=== PATIENT | female | born 1985 | race Caucasian/White ===

== ENCOUNTER 2017-12-19 05:03 | Inpatient (IN) | payer OTHER ==
[2017-12-19 07:19] LABS: MEAN CORPUSCULAR HEMOGLOBIN 31.1 pg (27.0-33.0); MEAN CORPUSCULAR VOLUME 88.9 fl (80.0-96.0); PLATELET COUNT, AUTOMATED 135 10^3/uL (150-450); RED CELL DISTRIBUTION WIDTH 13.2 % (11.5-14.5)
[2017-12-19] MEDS ORDERED: LR 1,000 ML IV (07:42)
[2017-12-19] MEDS: LACTATED RINGER'S 1000 ML IV (07:42)
[2017-12-19] MEDS ORDERED: TERBUTALINE SULFATE 1 MG/ML VIAL (J3105) As Ordered (07:47)
[2017-12-19] MEDS: TERBUTALINE SULFATE 1 MG/ML VIAL (J3105) SC (07:51)
[2017-12-19] MEDS: DOCUSATE SODIUM 100 MG CAP PO ×2 (09:00→21:04)
[2017-12-19] MEDS ORDERED: OXYTOCIN 30 UNITS IN 0.9% NaCl 500ML IV BAG (J2590) As Ordered (09:19)
[2017-12-19] MEDS: OXYTOCIN DRIP 30 UNITS in APPROPRIATE DILUENT 1 EA IV (09:55)
[2017-12-19] MEDS ORDERED: RHOGAM 300 MCG (1500 IU) INJ (J2790) IM (10:00)
[2017-12-19] MEDS ORDERED: MEASLES,MUMPS,RUBELLA VACCINE INJ (MMR-II) (90707) SC (10:00)
[2017-12-19] MEDS ORDERED: ONDANSETRON 4MG/2ML VIAL (J2405) IV (10:00)
[2017-12-19] MEDS ORDERED: DIBUCAINE 1% OINTMENT 30GM TOP (10:00)
[2017-12-19] MEDS: LIDOCAINE 1% MDV 20ML VIAL INFIL (12:15)
[2017-12-19] MEDS: METHYLERGONOVINE MALEATE 0.2 MG TAB PO ×2 (12:16→18:01)
[2017-12-19] MEDS: IBUPROFEN 800 MG TAB PO ×2 (12:54→21:03)
[2017-12-20] MEDS: METHYLERGONOVINE MALEATE 0.2 MG TAB PO ×2 (00:09→05:34)
[2017-12-20] MEDS: ACETAMINOPHEN TAB 650MG DOSE (2X325MG) PO (04:50)
[2017-12-20 05:05] LABS: HEMATOCRIT 36.5 % (36.0-47.0); HEMOGLOBIN 12.1 g/dl (12.0-16.0); MEAN CORPUSCULAR HEMOGLOBIN 30.9 pg (27.0-33.0); MEAN CORPUSCULAR HGB CONC 33.2 g/dl (32.0-36.5); MEAN CORPUSCULAR VOLUME 93.1 fl (80.0-96.0); PLATELET COUNT, AUTOMATED 129 10^3/uL (150-450); RED BLOOD COUNT 3.92 10^6/uL (4.00-5.40); RED CELL DISTRIBUTION WIDTH 13.5 % (11.5-14.5); WHITE BLOOD COUNT 11.8 10^3/uL (4.0-10.0)
[2017-12-20] MEDS: DOCUSATE SODIUM 100 MG CAP PO (08:31)
[2017-12-20] MEDS: PRENATAL VITAMINS CHEWABLE TABLET PO (08:31)
[2017-12-20] MEDS: IBUPROFEN 800 MG TAB PO ×2 (08:31→18:26)
== END 2017-12-20 19:05 | disposition home or self-care (01) | DRG 775 ==
LOC: M LDO 05:03 → M LDI 06:44 → M OBS 12:38
PROVIDERS: Student in an Organized Health Care Education/Training Program
PROC: 10E0XZZ Delivery of Products of Conception, External Approach (ICD-10-PCS; principal; 2017-12-19)
PROC: 0KQM0ZZ Repair Perineum Muscle, Open Approach (ICD-10-PCS; 2017-12-19)
DX: O48.0 Post-term pregnancy (principal); Z37.0 Single live birth; Z3A.40 40 weeks gestation of pregnancy; O69.82X0 Labor and delivery complicated by other cord entanglement, without compression, not applicable or unspecified; O70.1 Second degree perineal laceration during delivery; O66.0 Obstructed labor due to shoulder dystocia; O36.63X0 Maternal care for excessive fetal growth, third trimester, not applicable or unspecified

== ENCOUNTER → 2018-12-29 | Outpatient (CLI) | payer OTHER ==
[~2018-12-29] MED LIST: COLA100C5 PO; MOTR200T44 PO; PRENTAB55 PO; TYLE325T5 PO
[2018-12-29 14:22] LABS: CHLAMYDIA DNA AMPLIFICATION NEGATIVE (NEGATIVE); GC DNA AMPLIFICATION NEGATIVE (NEGATIVE)
[2018-12-30 10:55] LABS: HEPATITIS A ANTIBODY IGM NEGATIVE (NEGATIVE); HEPATITIS B CORE ANTIBODY IGM NEGATIVE (NEGATIVE); HEPATITIS B SURFACE ANTIGEN NEGATIVE (NEGATIVE); HEPATITIS C VIRUS ABY INDEX 0.1 INDEX (<0.8); HIV 1&2 SCREEN CENTAUR NEGATIVE (NEGATIVE)
== END ==
LOC: M WUC 09:10
PROVIDERS: ATTEND Physician Assistant
DX: Z20.2 Contact with and (suspected) exposure to infections with a predominantly sexual mode of transmission (principal)

== ENCOUNTER 2019-02-10 15:55 | Emergency (ER) | payer OTHER ==
[~2019-02-10] VITALS: Ht 167.6 cm; Wt 91.4 kg
[2019-02-10 16:39] LABS: BASO % 0.3 % (0.0-1.0); EOS # 0.2 10^3/uL (0.0-0.50); EOS % 1.1 % (0.0-3.0); HEMATOCRIT 44.6 % (36.0-47.0); LYMPH # 1.9 10^3/uL (1.5-4.5); LYMPH % 13.5 % (24.0-44.0); MEAN CORPUSCULAR HGB CONC 33.6 g/dl (32.0-36.5); MEAN CORPUSCULAR VOLUME 95.1 fl (80.0-96.0); MONO # 0.8 10^3/uL (0.0-0.8); MONO % 5.3 % (0.0-5.0); NEUTROPHILS # 11.2 10^3/uL (1.8-7.7); NEUTROPHILS % 79.5 % (36.0-66.0); PLATELET COUNT, AUTOMATED 174 10^3/uL (150-450); RED BLOOD COUNT 4.69 10^6/uL (4.00-5.40); WHITE BLOOD COUNT 14.1 10^3/uL (4.0-10.0)
[2019-02-10 17:09] LABS: HCG, SERUM QUALITATIVE NEGATIVE (NEGATIVE)
[2019-02-10 17:11] LABS: ALBUMIN 3.9 GM/DL (3.2-5.2); ALT/SGPT 24 U/L (12-78); BILIRUBIN,DIRECT < 0.1 MG/DL (0.0-0.2); BILIRUBIN,TOTAL 0.5 MG/DL (0.2-1.0); BLOOD UREA NITROGEN 14 MG/DL (7-18); CALCIUM LEVEL 8.6 MG/DL (8.5-10.1); CARBON DIOXIDE LEVEL 29 MEQ/L (21-32); CHLORIDE LEVEL 104 MEQ/L (98-107); CREATININE FOR GFR 0.85 MG/DL (0.55-1.30); GLOMERULAR FILTRATION RATE > 60.0 (>60); GLUCOSE, FASTING 118 MG/DL (70-100); LIPASE 174 U/L (73-393); POTASSIUM SERUM 3.9 MEQ/L (3.5-5.1); SODIUM LEVEL 139 MEQ/L (136-145); TOTAL PROTEIN 7.1 GM/DL (6.4-8.2)
--- NOTE | 2019-02-10 18:17 | REP ---
CT abdomen and pelvis without IV or oral contrast: History: Left lower quadrant pain. No comparison CT study. CT findings: Digital preliminary market president radiograph demonstrates a normal bowel gas pattern. The lung bases are clear on axial CT images. The liver and the spleen are normal in size homogeneous in texture. No adrenal lesion is seen. There is a 3 mm intrarenal calculus in the upper pole of the left kidney. A 3 mm intrarenal calculus is seen in the mid pole level of the right kidney. No hydronephrosis is seen on either side. Kidneys are otherwise unremarkable. No abnormalities noted in the gallbladder or pancreas. No retroperitoneal mass or adenopathy is seen. Small and large intestinal bowel loops are normal in the abdomen and pelvis. Normal appendix is seen in the right lower quadrant. Uterus and ovaries are unremarkable. Urinary bladder is intact. No abdominal wall defect is appreciated. No significant bony abnormality. Impression: Bilateral intrarenal nephrolithiasis. No hydronephrosis seen. Otherwise normal. Normal appendix seen. Electronically Signed by Sarmad Anderson MD 02/10/2019 07:07 P
[2019-02-10 18:40] VITALS: BP 135/76
== END 2019-02-10 18:50 | disposition home or self-care (01) ==
LOC: M ED 15:55
DX: R10.9 Unspecified abdominal pain (principal); N20.0 Calculus of kidney; Z88.2 Allergy status to sulfonamides